=== PATIENT | female | born 1955 | race Caucasian/White ===

== ENCOUNTER 2021-11-08 14:48 | Emergency (ER) | payer OTHER ==
[~2021-11-08] VITALS: Ht 180.3 cm; Wt 83.9 kg
[2021-11-08 14:48] VITALS: BP 0/0
--- NOTE | 2021-11-08 14:48 | NUR ---
Pt entered ER in Full arrest, EMS cont CPR at this time.
--- NOTE | 2021-11-08 15:04 | NUR ---
[facility] CALLED AND SPOKE WITH DENISE. WILL RECEIVE CALL BACK
--- NOTE | 2021-11-08 15:13 | NUR ---
[facility] CONTACTED AND SPOKE WITH DEBORAH -
--- NOTE | 2021-11-08 17:42 | NUR ---
SPOKE WITH JANESSA FROM [facility] AND PROVIDED WITH UPDATE ON PATIENT NEXT OF KIN
--- NOTE | 2021-11-08 18:10 | NUR ---
PT CONTACT INFORMATION DAUGHTER: BART SON: ALANA
--- NOTE | 2021-11-08 18:12 | NUR ---
SPOKE WITH CLEMENT FROM [facility] OFFICE. WAS INFORMED SHOULD RECEIVE CALL IN ABOUT 1-1.5HRS FROM [facility] OFFICE, BUT IN MEANTIME ABLE TO COVER PATIENT BODY WITH BLANKET, LEAVE ALL MEDICAL EQUIPMENT AND MOVE PATIENT BODY TO TEMPORARY ROOM
--- NOTE | 2021-11-08 18:41 | NUR ---
SPOKE WITH PATIENT SISTER JUNIOR COBURN . WAS INFORMED PT HAS HX OF HTN, ANXIETY, INSOMINA, AND HAS BEEN UNDER A LOT OF STRESS LATELY
--- NOTE | 2021-11-08 18:45 | NUR ---
SPOKE WITH JESUS FROM [facility] AND INFORMED STILL AYLEEN ON [facility] OFFICE FOR CLEARANCE OF BODY
--- NOTE | 2021-11-08 19:30 | NUR ---
SPOKE WITH CHANDLER ZHENG FROM [facility] OFFICE AND PROVIDED WITH PATIENT INFORMATION. WAS INFORMED WILL REACH OUT TO SISTER AND RECEIVE CALL BACK IN ABOUT 10 MIN
--- NOTE | 2021-11-08 19:56 | NUR ---
Spoke to Gaye from [facility] to receive an update for status of body at this time.
--- NOTE | 2021-11-08 20:40 | NUR ---
Spoke to Brushing Machine Operator, deputy Finch. Possible Brushing Machine Operator case due to emergency release to home. PCP will provide COD and DOC. [facility] in [facility] was selected by the family. Case # [id number]
--- NOTE | 2021-11-08 21:53 | NUR ---
JESUS FROM [facility] CALLED. ADVISED PHYSICAL THERAPY MANAGER CASE, GAVE CASE NUMBER
== END 2021-11-08 14:52 ==
LOC: MED 14:48
DX: I46.9 Cardiac arrest, cause unspecified (principal)
CPT/HCPCS: 31500; 92950; 99285